=== PATIENT | male | born 1995 | race American Indian/Alaskan Native ===

== ENCOUNTER 2020-07-17 01:00 | Emergency (ER) | payer SELFPAY ==
[2020-07-17] MEDS ORDERED: DIPHtheria,PERTUSSIS(ACELL),TETANUS VACCINE/PF 0.5 ML VIAL IM ONE (01:18)
[2020-07-17] MEDS ORDERED: ZIPRASIDONE MESYLATE 20 MG VIAL IM ONE ×2 (02:36→02:37)
[2020-07-17] MEDS ORDERED: WATER FOR INJ Sterile (PF) 10 ML ONE (02:37)
[2020-07-17] MEDS ORDERED: SODIUM CHLORIDE 0.9% 1000 ML 1,000 ML IV ONE (02:38)
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
[2020-07-17 02:57] LABS: Basophils % (Auto) 0.1 % (0.0-1.8); Hematocrit 44.2 % (35.5-45.6); Hemoglobin 14.1 gm/dl (11.8-15.2); Lymphocytes # (Auto) 1.5 K/mm3 (1.2-5.4); Lymphocytes % (Auto) 8.3 % (13.4-35.0); Mean Corpuscular HGB Conc 32 % (32-34); Mean Corpuscular Volume 83 fl (84-94); Monocytes # (Auto) 0.6 K/mm3 (0.0-0.8); Monocytes % (Auto) 3.3 % (0.0-7.3); Platelet Count 270 K/mm3 (140-440); Red Blood Count 5.31 M/mm3 (3.65-5.03)
[2020-07-17 03:22] LABS: Alanine Aminotransferase 29 units/L (7-56); Albumin 5.2 g/dL (3.9-5); BUN/Creatinine Ratio 14; Blood Urea Nitrogen 14 mg/dL (9-20); Calcium 9.5 mg/dL (8.4-10.2); Hemolysis Index 38
[2020-07-17] MEDS ORDERED: LIDOCAINE 1%/EPINEPHRINE 1:100,000 VIAL (20 ML) INFILTRATI ONE (03:49)
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
[2020-07-17 15:53] VITALS: BP 138/98
== END 2020-07-17 15:51 | disposition home or self-care (01) ==
LOC: ED 01:00
DX: S41.111A Laceration without foreign body of right upper arm, initial encounter (principal); F10.129 Alcohol abuse with intoxication, unspecified; X58.XXXA Exposure to other specified factors, initial encounter; Y93.89 Activity, other specified; Y92.89 Other specified places as the place of occurrence of the external cause; Y99.8 Other external cause status
CPT/HCPCS: 12002; 36415; 80053; 85025; 99283; J3486; 80320; G0480